=== PATIENT | male | born 1985 | race Caucasian/White ===

== ENCOUNTER 2023-11-27 14:15 | Emergency (ER) | payer OTHER ==
[~2023-11-27] VITALS: Ht 182.9 cm; Wt 177.5 kg
[2023-11-27 14:38] VITALS: BP 126/76; PULSE 77; RESP 20; TEMP 98.3; O2SAT 96
[2023-11-27 15:14] LABS: BASOPHILS % (AUTO) 0.7 % (0.0-2.0); EOSINOPHILS # (AUTO) 0.2 K/uL (0-0.4); EOSINOPHILS % (AUTO) 2.6 % (0.0-4.0); HEMATOCRIT 42.6 % (36-52); HEMOGLOBIN 14.6 g/dL (12.0-18.0); LYMPHOCYTES # (AUTO) 1.4 K/uL (2.0-11.5); LYMPHOCYTES % (AUTO) 22.2 % (20.5-51.1); MEAN CORPUSCULAR HEMOGLOBIN 28 pg (27-31); MEAN CORPUSCULAR HGB CONC 34 g/dL (33-37); MEAN CORPUSCULAR VOLUME 80.4 fL (80-94); MONOCYTES # (AUTO) 0.6 K/uL (0.8-1.0); MONOCYTES % (AUTO) 8.9 % (1.7-9.3); NEUTROPHILS # (AUTO) 4.3 K/uL (1.8-7.7); NEUTROPHILS % (AUTO) 65.6 % (42.2-75.2); PLATELET COUNT (AUTO) 178 K/uL (140-450); RED CELL DISTRIBUTION WIDTH 14.4 % (11.6-13.7); WHITE BLOOD COUNT (AUTO) 6.5 K/uL (4.8-10.8)
[2023-11-27 15:21] LABS: CALCIUM 8.5 mg/dL (8.5-10.1); CARBON DIOXIDE 25.8 mmol/L (21-32); POTASSIUM 3.8 mmol/L (3.5-5.1)
[2023-11-27] MEDS ORDERED: ONDANSETRON 4 MG ODT PO ONE (15:35)
[2023-11-27] MEDS: NACL 0.9% 1,000 ML IV ONE (15:58)
[2023-11-27] MEDS: ONDANSETRON 4 MG/2 ML VIAL IVP ONE (16:22)
[2023-11-27] MEDS ORDERED: MECL-303 PO (17:28)
[2023-11-27] MEDS: MECLIZINE 25 MG TAB PO ONE (17:41)
[2023-11-27 18:05] VITALS: BP 119/67; PULSE 72; RESP 13; TEMP 97.8; O2SAT 97
== END 2023-11-27 18:05 | disposition home or self-care (01) ==
LOC: MED 14:15
DX: R42 Dizziness and giddiness (principal); R07.9 Chest pain, unspecified; M54.50 Low back pain, unspecified; Z79.899 Other long term (current) drug therapy
CPT/HCPCS: 36415; 71045; 80048; 84484; 85025; 93005; 96361; 96374; 99285; J2405; J7030; J8597